=== PATIENT | female | born 2000 | race Caucasian/White ===

== ENCOUNTER 2021-08-04 21:14 | Emergency (ER) | payer OTHER, MEDICAID | END 2021-08-04 23:11 | disposition home or self-care (01) | LOC: CSHERS 21:14 | DX: S62.306A Unspecified fracture of fifth metacarpal bone, right hand, initial encounter for closed fracture (principal); W01.0XXA Fall on same level from slipping, tripping and stumbling without subsequent striking against object, initial encounter | CPT/HCPCS: 26600 ==